=== PATIENT | female | born 1950 | race Two or more races ===

== ENCOUNTER 2017-06-25 05:45 | Inpatient (IN) | payer OTHER ==
[2017-06-25] VITALS (54 sets, daily range): BP systolic 91–136; BP diastolic 58–84
[~2017-06-25] VITALS: Ht 160 cm; Wt 72.4 kg
[2017-06-25] MEDS ORDERED: ASPirin 81 mg TAB PO ONE (06:00)
[2017-06-25] MEDS ORDERED: NITROGLYCERIN 0.4 MG SL TAB SL ONE (06:00)
[2017-06-25] MEDS ORDERED: LORazepam 2MG/ML-1ML VIAL ONE (06:01)
[2017-06-25] MEDS ORDERED: SUCCINYLCHOLINE CHLORIDE 20 MG/ML 10ML VIAL IV ONE ×2 (06:12→06:30)
[2017-06-25] MEDS ORDERED: ETOMIDATE (2MG/ML) 20ML VIAL IV ONE (06:12)
[2017-06-25] MEDS ORDERED: DOPamine 1600MCG/ML D5W 0 ML IV ONE (06:12)
[2017-06-25] MEDS ORDERED: HEPARIN SODIUM (PORCINE) 5000 UNITS/ML 1ML VIAL ONE (06:16)
[2017-06-25] MEDS ORDERED: HEPARIN DRIP/D5W 100UNITS/ML 250 ML IV ONE (06:16)
[2017-06-25 06:24] LABS: Basophils # (auto) 0.1 uL; Basophils % (auto) 0.9 % (0.0-2.0); Eosinophils # (auto) 0.2 uL; Eosinophils % (auto) 1.8 % (0.0-7.0); Hematocrit 44.3 % (36.0-46.0); Lymphocytes # (auto) 4.3 uL; Lymphocytes % (auto) 35.8 % (10.0-50.0); Mean Corpuscular Hgb Conc. 33.8 g/dL (32.0-36.0); Mean Corpuscular Volume 94.8 fL (80.0-100.0); Monocytes # (auto) 0.6 uL; Monocytes % (auto) 4.8 % (0.0-12.0); Neutrophils # (auto) 6.7 uL; Neutrophils % (auto) 56.7 % (37.0-80.0); Nucleated Red Blood Cells % 0.1 %; Platelet Count (auto) 388 10^3/uL (140-450); Red Blood Cells 4.67 10^6/uL (4.0-5.20); Red Cell Distribution Width 13.5 % (11.8-14.3); White Blood Cell 11.9 10^3/uL (4.4-10.8)
[2017-06-25 06:27] LABS: INR 0.88 (0.9-1.15); Partial Thromboplastin Time 22.7 sec (22.64-33.71); Prothrombin Time 9.6 sec (9.37-12.3)
[2017-06-25] MEDS ORDERED: SODIUM BICARBONATE 8.4% INJ 50ML SYRINGE ONE (06:30)
[2017-06-25] MEDS ORDERED: HEPARIN IN NS 1000U/500ML (2UNIT/ML) 500 ML BAG/KIT IV ONE (06:30)
[2017-06-25] MEDS ORDERED: SODIUM BICARBONATE 8.4 % INJ 50ML VIAL IV ONE ×3 (06:30→12:04)
[2017-06-25] MEDS ORDERED: HEPARIN DRIP/D5W 100UNITS/ML 250 ML IV SCH (06:31)
[2017-06-25] MEDS ORDERED: AMIODARONE HCL (50 MG/ ML) 3 ML VIAL IV ONE ×2 (06:35→12:04)
[2017-06-25] MEDS: MIDAZOLAM DRIP 50 mg/50mL 50 ML IV ONE ×2 (06:40→06:56)
[2017-06-25 06:45] LABS: BUN/Creatinine Ratio 18.9; Bilirubin, Total 0.3 mg/dL (0.2-1.0); Calcium 9.4 mg/dL (8.5-10.1); Magnesium 2.5 mg/dL (1.6-2.6); Potassium 3.6 mmol/L (3.5-5.1); Total Protein 8.9 g/dL (6.4-8.2)
[2017-06-25] MEDS ORDERED: AMIODARONE HCL 150 MG in D5W 5% 100 ML IV ONE (06:45)
[2017-06-25] MEDS: MIDAZOLAM DRIP 50 mg/50mL 50 ML IV SCH ×3 (06:47→09:12)
[2017-06-25] MEDS ORDERED: PHENYLEPHRINE IV 250 ML IV ONE (06:48)
[2017-06-25] MEDS ORDERED: LORazepam 2MG/ML-1ML VIAL IV ONE (07:00)
[2017-06-25] MEDS ORDERED: DOPamine 1600MCG/ML D5W 250 ML IV ONE (07:02)
[2017-06-25] MEDS ORDERED: ANGIOMAX 250 MG VIAL IV ONE (07:02)
[2017-06-25] MEDS ORDERED: ATROPINE SULF 0.5 MG/5ML SYR ONE (07:02)
[2017-06-25] MEDS ORDERED: SODIUM CHL 0.9% 50 ML ONE (07:02)
[2017-06-25] MEDS ORDERED: IOHEXOL 350 MG/ML 100ML IJ ONE (07:03)
[2017-06-25] MEDS ORDERED: LIDOCAINE 2%HCL (LOCAL ANESTH.) INJ 20ML MDV ONE (07:03)
[2017-06-25 07:07] LABS: Urine Bacteria NONE SEEN /hpf (None Seen); Urine Blood TRACE /uL (Negative); Urine Specific Gravity 1.022 (1.001-1.035); Urine WBC 1 /hpf (0 - 5)
[2017-06-25 07:17] LABS: Alcohol, Urine < 3.0 mg/dL (0-5); Amphetamine Screen, Urine NEGATIVE (NEGATIVE); Barbiturate Scree,Urine NEGATIVE (NEGATIVE); Benzodiazephine Screen, Urine NEGATIVE (NEGATIVE); Cannabinoid Screen, Urine POSITIVE (NEGATIVE); Cocaine Screen, Urine NEGATIVE (NEGATIVE); Opiate Scree,Urine NEGATIVE (NEGATIVE); Phencyclidine Screen, Urine NEGATIVE (NEGATIVE)
[2017-06-25] MEDS ORDERED: EPTIFIBATIDE INJ (2MG/ML) 10ML VIAL IV ONE ×2 (07:23→08:11)
[2017-06-25] MEDS ORDERED: fentaNYL CITRATE 100 MCG/2 ML VL ONE (07:37)
[2017-06-25] MEDS ORDERED: AMIODARONE HCL 900 MG in DEXTROSE 500 ML IV SCH (08:04)
[2017-06-25] MEDS ORDERED: CLOPIDOGREL 300 MG TAB ONE (08:43)
[2017-06-25] MEDS ORDERED: MIDAZOLAM DRIP 50 mg/50mL 50 ML IV SCH (08:45)
[2017-06-25] MEDS ORDERED: MORPHINE SULFATE 4 MG/ML SYR/VIAL IV PRN (08:45)
[2017-06-25] MEDS: DOPamine 1600MCG/ML D5W 250 ML IV SCH ×2 (08:45→22:40)
[2017-06-25] MEDS ORDERED: CLOPIDOGREL 300 MG TAB PO ONE (08:45)
[2017-06-25] MEDS ORDERED: DEXTROSE (50%) 50ML SYRG IV PRN (08:45)
[2017-06-25] MEDS ORDERED: NITROGLYCERIN 0.4 MG SL TAB SL PRN (08:45)
[2017-06-25 09:36] LABS: Cholesterol 292 mg/dL (< 200); HDL Cholesterol 34 mg/dL (40-59); Triglycerides 666 mg/dL (< 150)
[2017-06-25] MEDS ORDERED: ONDANSETRON HCL 4 MG/2 ML VIAL IV PRN (11:30)
[2017-06-25] MEDS: InsuLIN REG 1unit/0.01ml Soln (100units/ml) SC SCH ×3 (11:30→23:30)
[2017-06-25] MEDS: fentaNYL Drip 2500mCg/250mlNS 250 ML IV SCH (11:40)
[2017-06-25] MEDS ORDERED: PANTOPRAZOLE 40 MG/10 ML VIAL IV ONE (11:45)
[2017-06-25] MEDS ORDERED: D5W 5% 100 ML BAG IV ONE (12:04)
[2017-06-25] MEDS ORDERED: EPINEPHrine HCL 1 MG/10 ML SYRG IV ONE (12:04)
[2017-06-25] MEDS ORDERED: DEXTROSE IV SCH (13:51)
[2017-06-25] MEDS ORDERED: AMIODARONE HCL IV SCH (13:51)
[2017-06-25] MEDS: PIPERACILLIN-TAZO 4.5GM 50 ML IV SCH ×2 (15:45→23:47)
[2017-06-25 17:16] LABS: Basophils # (auto) 0 uL; Basophils % (auto) 0.2 % (0.0-2.0); Eosinophils # (auto) 0 uL; Hematocrit 37.6 % (36.0-46.0); Hemoglobin 12.5 g/dL (12.2-16.2); Lymphocytes # (auto) 1.1 uL; Lymphocytes % (auto) 6.7 % (10.0-50.0); Mean Corpuscular Hemoglobin 31.3 pg (28.0-32.0); Mean Corpuscular Hgb Conc. 33.1 g/dL (32.0-36.0); Mean Corpuscular Volume 94.4 fL (80.0-100.0); Monocytes # (auto) 0.7 uL; Monocytes % (auto) 4.6 % (0.0-12.0); Neutrophils # (auto) 13.8 uL; Neutrophils % (auto) 88.5 % (37.0-80.0); Nucleated Red Blood Cells % 0.1 %; Platelet Count (auto) 290 10^3/uL (140-450); Red Blood Cells 3.99 10^6/uL (4.0-5.20); Red Cell Distribution Width 13.6 % (11.8-14.3); White Blood Cell 15.6 10^3/uL (4.4-10.8)
[2017-06-25 17:35] LABS: BUN/Creatinine Ratio 16.7; Calcium 8.1 mg/dL (8.5-10.1); Magnesium 1.9 mg/dL (1.6-2.6); Potassium 3.7 mmol/L (3.5-5.1)
[2017-06-25] MEDS: ACCU-CHEK COMFORT CURVE STRIP VI SCH ×2 (18:00→22:00)
[2017-06-25] MEDS ORDERED: ATORVASTATIN 20 MG TAB PO SCH (22:00)
[2017-06-25] MEDS: ACETAMINOPHEN 325 MG TAB PO PRN (23:32)
[2017-06-26] VITALS (84 sets, daily range): BP systolic 85–139; BP diastolic 41–85
[2017-06-26] MEDS ORDERED: PROPOFOL 100 ML IV ONE (01:23)
[2017-06-26] MEDS: PROPOFOL 100 ML IV SCH ×3 (02:00→19:39)
[2017-06-26 03:52] LABS: Basophils # (auto) 0.1 uL; Basophils % (auto) 0.4 % (0.0-2.0); Eosinophils # (auto) 0 uL; Hematocrit 36.5 % (36.0-46.0); Hemoglobin 12.3 g/dL (12.2-16.2); Lymphocytes % (auto) 11.6 % (10.0-50.0); Mean Corpuscular Hemoglobin 31.6 pg (28.0-32.0); Mean Corpuscular Hgb Conc. 33.8 g/dL (32.0-36.0); Mean Corpuscular Volume 93.5 fL (80.0-100.0); Monocytes # (auto) 0.8 uL; Monocytes % (auto) 4.7 % (0.0-12.0); Neutrophils # (auto) 14.7 uL; Neutrophils % (auto) 83.3 % (37.0-80.0); Platelet Count (auto) 255 10^3/uL (140-450); Red Blood Cells 3.91 10^6/uL (4.0-5.20); Red Cell Distribution Width 13.7 % (11.8-14.3); White Blood Cell 17.6 10^3/uL (4.4-10.8)
[2017-06-26 04:42] LABS: Albumin 2.9 g/dL (3.4-5.0); BUN/Creatinine Ratio 24.4; Bilirubin, Total 0.5 mg/dL (0.2-1.0); Calcium 7.8 mg/dL (8.5-10.1); Magnesium 2.1 mg/dL (1.6-2.6); Potassium 3.3 mmol/L (3.5-5.1); Total Protein 6.8 g/dL (6.4-8.2)
[2017-06-26] MEDS: PIPERACILLIN-TAZO 4.5GM 50 ML IV SCH ×2 (06:11→14:00)
[2017-06-26] MEDS: ACCU-CHEK COMFORT CURVE STRIP VI SCH ×3 (06:11→17:22)
[2017-06-26] MEDS: InsuLIN REG 1unit/0.01ml Soln (100units/ml) SC SCH ×3 (06:27→17:00)
[2017-06-26 09:25] LABS: Basophils # (auto) 0 uL; Basophils % (auto) 0.2 % (0.0-2.0); Eosinophils # (auto) 0 uL; Eosinophils % (auto) 0.1 % (0.0-7.0); Hematocrit 37.4 % (36.0-46.0); Hemoglobin 12.4 g/dL (12.2-16.2); Lymphocytes # (auto) 2.4 uL; Lymphocytes % (auto) 13.7 % (10.0-50.0); Mean Corpuscular Hgb Conc. 33.2 g/dL (32.0-36.0); Mean Corpuscular Volume 93.5 fL (80.0-100.0); Monocytes # (auto) 0.9 uL; Monocytes % (auto) 5.2 % (0.0-12.0); Neutrophils % (auto) 80.8 % (37.0-80.0); Nucleated Red Blood Cells % 0.1 %; Platelet Count (auto) 228 10^3/uL (140-450); Red Cell Distribution Width 13.2 % (11.8-14.3); White Blood Cell 17.3 10^3/uL (4.4-10.8)
[2017-06-26] MEDS ORDERED: PANTOPRAZOLE 40 MG/10 ML VIAL IV SCH (10:00)
[2017-06-26] MEDS ORDERED: CLOPIDOGREL BISULFATE 75 MG TAB PO SCH (10:00)
[2017-06-26] MEDS ORDERED: ASPirin 81 mg TAB PO SCH (10:00)
[2017-06-26] MEDS: fentaNYL Drip 2500mCg/250mlNS 250 ML IV SCH (10:56)
[2017-06-26] MEDS: MIDAZOLAM DRIP 50 mg/50mL 50 ML IV SCH ×2 (11:01→20:00)
[2017-06-26] MEDS ORDERED: POTASSIUM CHL 20MEQ/100ML 100 ML IV ONE (12:00)
[2017-06-26] MEDS ORDERED: ATROPINE SULF 0.5 MG/5ML SYR ONE (12:20)
[2017-06-26] MEDS ORDERED: NICOTINE 21MG/24 HR TOPICAL PATCH TD SCH (13:00)
[2017-06-26] MEDS ORDERED: ATOR20TA50 PO (13:58)
[2017-06-26] MEDS ORDERED: LISI-707 PO (13:58)
[2017-06-26] MEDS ORDERED: LISI-646 PO (13:58)
[2017-06-26] MEDS: POTASSIUM CHL 20MEQ/100ML 100 ML IV SCH ×2 (14:45→16:45)
[2017-06-26] MEDS: ACETAMINOPHEN 325 MG TAB PO PRN (16:51)
[2017-06-26] MEDS: DOPamine 1600MCG/ML D5W 250 ML IV SCH (18:04)
== END 2017-06-26 21:50 | disposition short-term general hospital (02) | DRG 246 ==
LOC: ER 05:45 → CATH 06:32 → OVERFLOW 06:33 → ICU WEST 22:20
PROVIDERS: ADMIT Nurse Practitioner; ATTEND Family Medicine
PROC: 027034Z Dilation of Coronary Artery, One Artery with Drug-eluting Intraluminal Device, Percutaneous Approach (ICD-10-PCS; principal; 2017-06-25)
PROC: 5A1945Z Respiratory Ventilation, 24-96 Consecutive Hours (ICD-10-PCS; 2017-06-25)
PROC: 02C03ZZ Extirpation of Matter from Coronary Artery, One Artery, Percutaneous Approach (ICD-10-PCS; 2017-06-25)
PROC: 5A12012 Performance of Cardiac Output, Single, Manual (ICD-10-PCS; 2017-06-25)
PROC: 4A023N7 Measurement of Cardiac Sampling and Pressure, Left Heart, Percutaneous Approach (ICD-10-PCS; 2017-06-25)
PROC: B2111ZZ Fluoroscopy of Multiple Coronary Arteries using Low Osmolar Contrast (ICD-10-PCS; 2017-06-25)
PROC: 3E033PZ Introduction of Platelet Inhibitor into Peripheral Vein, Percutaneous Approach (ICD-10-PCS; 2017-06-25)
PROC: 0BH17EZ Insertion of Endotracheal Airway into Trachea, Via Natural or Artificial Opening (ICD-10-PCS; 2017-06-25)
PROC: 02H633Z Insertion of Infusion Device into Right Atrium, Percutaneous Approach (ICD-10-PCS; 2017-06-25)
PROC: 5A2204Z Restoration of Cardiac Rhythm, Single (ICD-10-PCS; 2017-06-25)
DX: I21.19 ST elevation (STEMI) myocardial infarction involving other coronary artery of inferior wall (principal); J96.00 Acute respiratory failure, unspecified whether with hypoxia or hypercapnia; I46.9 Cardiac arrest, cause unspecified; J69.0 Pneumonitis due to inhalation of food and vomit; I49.01 Ventricular fibrillation; E66.9 Obesity, unspecified; Z68.28 Body mass index [BMI] 28.0-28.9, adult; E78.5 Hyperlipidemia, unspecified; F17.210 Nicotine dependence, cigarettes, uncomplicated; I11.9 Hypertensive heart disease without heart failure; I73.9 Peripheral vascular disease, unspecified; F12.90 Cannabis use, unspecified, uncomplicated; Z88.5 Allergy status to narcotic agent
CPT/HCPCS: 31500; 36415; 36600; 71045; 80048; 80053; 80061; 80307; 81001; 82805; 82962; 83036; 83735; 84443; 84484; 85025; 85610; 85730; 87070; 87081; 87205; 92928; 92950; 92960; 92973; 93005; 93306; 93458; 94002; 94003; 96374; 99152; 99291; C1751; C1874; C1887; C9113; J0330; J0461; J1815; J2250; J2543; J2704; J3010; J3480; J7060